=== PATIENT | female | born 1935 | race Caucasian/White ===

== ENCOUNTER 2021-12-17 10:56 | Emergency (ER) | payer MEDICARE ==
[~2021-12-17] VITALS: Ht 165.1 cm; Wt 68.0 kg
[2021-12-17] MEDS ORDERED: ADULT MULTIVIT1 EACH PO (10:58)
[2021-12-17] MEDS ORDERED: ALL DAY ALLERGY10 M3 PO (10:58)
[2021-12-17] MEDS ORDERED: GLIMEPIRIDE4 MG PO (10:59)
[2021-12-17] MEDS ORDERED: QUESTRAN PACKET4 GM PO (10:59)
[2021-12-17] MEDS ORDERED: ARICEPT10 M1 PO (10:59)
[2021-12-17] MEDS ORDERED: BAZA PROTECT57 GM (11:00)
[2021-12-17] MEDS ORDERED: PAIN RELIEF325 MG PO (11:00)
[2021-12-17] MEDS ORDERED: NYSTATIN15 G1 TOP (11:01)
[2021-12-17 11:28] LABS: ABSOLUTE EOSINOPHILS 0.1 thou/uL (0.0-0.7); ABSOLUTE LYMPHOCYTES 2.2 thou/uL (0.8-5.3); ABSOLUTE MONOCYTES 1.2 thou/uL (0.0-1.2); ABSOLUTE NEUTROPHILS 11.4 thou/uL (1.6-8.1); BASOPHILS 0.3 %; EOSINOPHILS 0.4 %; HEMATOCRIT 42.4 % (37.0-47.0); HEMOGLOBIN 14.3 gm/dL (12.0-15.0); LYMPHOCYTES 14.7 %; MCH 29.9 pg (26.0-34.0); MCHC 33.8 g/dL (28.0-37.0); MCV 88.4 fL (80.0-100.0); MONOCYTES 8.2 %; MPV 7.5 fl. (7.2-11.1); NUCLEATED RBCS 0 /100WBC; PLATELET COUNT* 344 thou/uL (150-400); POLYS 76.4 %; RBC 4.79 mil/uL (4.20-5.00); WBC 14.9 thou/uL (4.0-11.0)
[2021-12-17 11:40] LABS: INR 1.1; PROTIME 11.5 Seconds (9.20-11.50)
[2021-12-17 11:47] LABS: CALCIUM 8.6 mg/dL (8.5-10.1); POTASSIUM 3.9 mmol/L (3.5-5.1)
[2021-12-17 11:51] LABS: ALBUMIN 3.1 g/dL (3.4-5.0); TOTAL PROTEIN 6.2 g/dL (6.4-8.2)
[2021-12-17 14:11] LABS: URINE BILIRUBIN NEGATIVE (Negative); URINE BLOOD NEGATIVE (Negative); URINE CLARITY CLEAR; URINE COLOR YELLOW; URINE GLUCOSE-RANDOM NEGATIVE (Negative); URINE KETONES NEGATIVE (Negative); URINE LEUKOCYTES-REFLEX NEGATIVE (Negative); URINE NITRITE-REFLEX NEGATIVE (Negative); URINE PROTEIN NEGATIVE (Negative); URINE SPECIFIC GRAVITY 1.025 (1.005-1.030); URINE UROBILINOGEN 0.2 E.U./dl (0.2-1.0)
--- NOTE | 2021-12-17 14:40 | EKG ---
[place] [address] ELECTROCARDIOGRAM REPORT Name: EN GARZA Room: [facility]#: [id number] Admission: 12/17/21 Attend Phys: Discharge: Date of : 35 Date of Service: 12/17/21 1120 Report #: [id number] THIS REPORT FOR: //name// [facility] ED Test Date: 2021-12-17 Test Time: 11:20:11 Pat Name: EN GARZA Department: Room: Gender: Kaitara Taraka: [place]A : 1935 Requested By: Jorge Luis Ly Order Number: [id number] MD: Michael Pereira Measurements Intervals [place] Rate: 69 P: 21 DC: 146 QRS: -51 QRSD: 79 T: 43 QT: 368 QTc: 395 Interpretive Statements Sinus rhythm Left anterior fascicular block Abnormal R-wave progression, late transition Borderline T wave abnormalities No previous ECG available for comparison Electronically Signed On 12-17-2021 14:40:07 [employer] by Michael Pereira [email or web address] <ELECTRONICALLY SIGNED> By: Michael Pereira MD, [facility] 12/17/21 1440 1120 1120 Michael Pereira MD, [facility] /EPI
[2021-12-17 16:32] VITALS: BP 139/66
== END 2021-12-17 16:33 | disposition home or self-care (01) ==
LOC: M.ERS 10:56
PROVIDERS: Emergency Medicine
DX: R53.1 Weakness (principal); R29.810 Facial weakness; R11.2 Nausea with vomiting, unspecified; F03.90 Unspecified dementia, unspecified severity, without behavioral disturbance, psychotic disturbance, mood disturbance, and anxiety; Z79.899 Other long term (current) drug therapy; Z88.8 Allergy status to other drugs, medicaments and biological substances; Z88.2 Allergy status to sulfonamides